=== PATIENT | male | born 1990 | race African-American/Black ===

== ENCOUNTER 2018-09-02 13:35 | Emergency (ER) | payer OTHER ==
[~2018-09-02] VITALS: Ht 165.1 cm; Wt 68.2 kg
[2018-09-02] MEDS ORDERED: FLEXERIL5 M1 PO (15:14)
[2018-09-02 15:20] VITALS: BP 112/66
== END 2018-09-02 15:20 | disposition home or self-care (01) ==
LOC: ED 13:35
DX: M62.838 Other muscle spasm (principal); M25.511 Pain in right shoulder

== ENCOUNTER 2018-09-04 07:08 | Emergency (ER) | payer OTHER ==
[~2018-09-04] VITALS: Ht 165.1 cm; Wt 68.0 kg
[~2018-09-04 07:08] MED LIST: FLEXERIL5 M1 PO
[2018-09-04] MEDS ORDERED: NAPROSYN500 MG PO (07:43)
[2018-09-04 07:47] VITALS: BP 133/67
== END 2018-09-04 07:53 | disposition home or self-care (01) ==
LOC: ED 07:08
DX: S43.401A Unspecified sprain of right shoulder joint, initial encounter (principal); J45.909 Unspecified asthma, uncomplicated; F17.290 Nicotine dependence, other tobacco product, uncomplicated; X58.XXXA Exposure to other specified factors, initial encounter

== ENCOUNTER 2019-02-10 19:17 | Emergency (ER) | payer MEDICAID ==
[~2019-02-10] VITALS: Ht 165.1 cm; Wt 63.4 kg
[~2019-02-10 19:17] MED LIST changes: +NAPROSYN500 MG PO
[2019-02-10] MEDS ORDERED: AMOXICILLIN500 MG PO (19:36)
[2019-02-10] MEDS ORDERED: MOTRIN800 MG PO (19:36)
[2019-02-10] MEDS ORDERED: TRAMADOL HCL50 MG PO (19:36)
[2019-02-10 19:41] VITALS: BP 133/75
== END 2019-02-10 19:41 | disposition home or self-care (01) ==
LOC: ED 19:17
DX: K02.9 Dental caries, unspecified (principal); K04.7 Periapical abscess without sinus; F17.210 Nicotine dependence, cigarettes, uncomplicated

== ENCOUNTER 2019-08-19 08:12 | Emergency (ER) | payer MEDICAID ==
[~2019-08-19] VITALS: Ht 165.1 cm; Wt 59.0 kg
[~2019-08-19 08:12] MED LIST changes: +AMOXICILLIN500 MG PO; +MOTRIN800 MG PO; +TRAMADOL HCL50 MG PO
[2019-08-19] MEDS ORDERED: AMOXICILLIN500 MG PO (08:38)
[2019-08-19] MEDS ORDERED: ULTRAM50 M1 PO (08:38)
[2019-08-19 08:51] VITALS: BP 111/73
== END 2019-08-19 08:56 | disposition home or self-care (01) ==
LOC: ED 08:12
DX: K04.7 Periapical abscess without sinus (principal); M84.48XA Pathological fracture, other site, initial encounter for fracture; F17.200 Nicotine dependence, unspecified, uncomplicated

== ENCOUNTER 2019-09-25 12:32 | Emergency (ER) | payer MEDICAID ==
[~2019-09-25] VITALS: Ht 165.1 cm; Wt 59.0 kg
[~2019-09-25 12:32] MED LIST changes: +ULTRAM50 M1 PO
[2019-09-25] MEDS ORDERED: PENICILLN VK500 MG PO (14:30)
[2019-09-25 14:35] VITALS: BP 117/67
== END 2019-09-25 14:35 | disposition home or self-care (01) ==
LOC: ED 12:32
DX: K04.7 Periapical abscess without sinus (principal); K02.9 Dental caries, unspecified; F17.290 Nicotine dependence, other tobacco product, uncomplicated

== ENCOUNTER 2019-10-02 12:40 | Emergency (ER) | payer MEDICAID ==
[~2019-10-02 12:40] MED LIST changes: +PENICILLN VK500 MG PO
[2019-10-03] MEDS ORDERED: MOTRIN400 MG PO (13:24)
[2019-10-03] MEDS ORDERED: CLINDAMYCIN300 M1 PO (13:25)
== END 2019-10-02 13:17 | disposition left against medical advice (07) | DRG 951 ==
LOC: ED 12:40 → LWOBS 13:17
DX: Z53.21 Procedure and treatment not carried out due to patient leaving prior to being seen by health care provider (principal)

== ENCOUNTER 2019-10-03 12:17 | Emergency (ER) | payer MEDICAID ==
[~2019-10-03] VITALS: Ht 165.1 cm; Wt 59.0 kg
[2019-10-03] MEDS ORDERED: MOTRIN400 MG PO (13:24)
[2019-10-03] MEDS ORDERED: CLINDAMYCIN300 M1 PO (13:25)
[2019-10-03 13:30] VITALS: BP 121/68
== END 2019-10-03 14:05 | disposition home or self-care (01) ==
LOC: ED 12:17
DX: K04.7 Periapical abscess without sinus (principal); F17.210 Nicotine dependence, cigarettes, uncomplicated

== ENCOUNTER 2019-10-22 | Emergency (ER) | payer MEDICAID ==
[~2019-10-22] MED LIST changes: +CLINDAMYCIN300 M1 PO; +MOTRIN400 MG PO
[2019-10-22] MEDS ORDERED: ULTRAM50 M1 PO (09:09)
[2019-10-22] MEDS ORDERED: AMOXICILLIN500 MG PO (09:09)
== END 2019-10-22 09:22 | disposition home or self-care (01) ==
DX: K04.7 Periapical abscess without sinus (principal); M84.68XA Pathological fracture in other disease, other site, initial encounter for fracture; F17.200 Nicotine dependence, unspecified, uncomplicated

== ENCOUNTER 2020-01-15 | Emergency (ER) | payer MEDICAID ==
[2020-01-15] MEDS ORDERED: TESSALON PERLE100 MG PO (19:04)
== END 2020-01-15 19:15 | disposition home or self-care (01) ==
DX: R05 Cough (principal); F17.210 Nicotine dependence, cigarettes, uncomplicated

== ENCOUNTER 2020-01-18 | Emergency (ER) | payer MEDICAID ==
[~2020-01-18] MED LIST changes: +TESSALON PERLE100 MG PO
[2020-01-18 11:35] LABS: HEMATOCRIT 47.4 % (39.0-50.0); HEMOGLOBIN 15.4 g/dl (14.0-18.0); IMMATURE GRANULOCYTES 0.2 % (0.0-5.0); MEAN CORPUSCULAR HGB 29.6 pG CALC (26.0-32.0); MEAN CORPUSCULAR HGB CONC 32.5 g/dL CAL (32.0-36.0); NEUT# 1.61 thou/uL (1.82-7.42); RED BLOOD COUNT 5.21 mill/uL (4.70-6.10)
[2020-01-18 11:53] LABS: ALKALINE PHOSPHATASE 92 u/l (38-126); ANION GAP 12 (6-22 (CALC)); BILIRUBIN, TOTAL 0.8 mg/dL (0.0-1.4); BUN 11 mg/dL (9-20); BUN/CREATININE RATIO 15 (12-20 (CALC)); CARBON DIOXIDE 27 mmol/l (22-30); CHLORIDE 105 mmol/l (95-108); CREATININE 0.7 mg/dL (0.7-1.3); GFR > 60 ML/MIN (>=60 (CALC)); GFR FOR AFR.AMER. > 60 ML/MIN (>=60 (CALC)); POTASSIUM 4.4 mmol/l (3.5-5.1); SGOT/AST 27 u/l (17-59); SODIUM 139 mmol/l (137-146); TOTAL PROTEIN 8.8 g/dL (6.3-8.2)
[2020-01-18 12:05] LABS: MYOGLOBIN 32 ng/mL (0 - 121)
[2020-01-18] MEDS ORDERED: NAPROXEN DR500 MG PO (12:15)
== END 2020-01-18 13:00 | disposition home or self-care (01) ==
PROVIDERS: Emergency Medicine
DX: M79.10 Myalgia, unspecified site (principal); J45.909 Unspecified asthma, uncomplicated; F17.210 Nicotine dependence, cigarettes, uncomplicated

== ENCOUNTER 2020-02-07 | Emergency (ER) | payer MEDICAID ==
[~2020-02-07] MED LIST changes: +NAPROXEN DR500 MG PO
[2020-02-07] MEDS ORDERED: ACETAMIN500 M2 PO (11:22)
[2020-02-07] MEDS ORDERED: TYLENOL500 MG PO (11:37)
[2020-02-07] MEDS ORDERED: AMOXICILLIN500 MG PO (11:39)
[2020-02-07] MEDS ORDERED: ULTRAM50 M1 PO (11:39)
== END 2020-02-07 11:42 | disposition home or self-care (01) ==
DX: K08.89 Other specified disorders of teeth and supporting structures (principal); F17.290 Nicotine dependence, other tobacco product, uncomplicated

== ENCOUNTER 2020-02-29 09:33 | Emergency (ER) | payer MEDICAID ==
[~2020-02-29 09:33] MED LIST changes: +ACETAMIN500 M2 PO; +TYLENOL500 MG PO
[2020-02-29] MEDS ORDERED: IBUPROFEN600 MG PO (09:44)
[2020-02-29] MEDS ORDERED: CLINDAMYCIN300 M1 PO (09:44)
[2020-02-29 09:55] VITALS: BP 117/77
== END 2020-02-29 09:55 | disposition home or self-care (01) ==
LOC: ED 09:33
DX: K03.81 Cracked tooth (principal); F17.200 Nicotine dependence, unspecified, uncomplicated